=== PATIENT | male | born 1970 | race Caucasian/White ===

== ENCOUNTER → 2017-06-20 | Outpatient (CLI) | payer OTHER ==
[~2017-06-20] MED LIST: ACETAMINOPHEN PO; ADVIL200 M2 PO; ASPIRIN81 M2 PO; EXCEDRIN EXTRA1 TAB PO; IBUPROFEN; TOPROL XL 50 MG50 MG PO; TOPROL XL100 MG PO; TYLOX 5-500 CA1 EACH PO; ZANTAC PO; ZANTAC150 MG PO
--- NOTE | ~2017-06-20 | EKG ---
PATIENT: OBEY MURPHY UNIT #: [id number] Ventricular Rate: 70 BPM Atrial Rate: 70 BPM P-R Interval: 170 ms QRS Duration: 82 ms Q-T Interval: 392 ms QTC Calculation(Bezet): 423 ms P [place]: 42 degrees Calculated R [place]: 31 degrees Calculated T [place]: 23 degrees Diagnosis Line: Normal sinus rhythm Diagnosis Line: Possible Left atrial enlargement Diagnosis Line: Borderline ECG Diagnosis Line: No previous ECGs available Diagnosis Line: Confirmed by LINA WOOD MD ([id number]) on 06/22/2017 Diagnosis Line: 2:51:27 PM INTERPRETING MD: ISRAEL CORDERO
== END | disposition home or self-care (01) ==
LOC: CAMB 12:34
DX: Z01.810 Encounter for preprocedural cardiovascular examination (principal); K40.90 Unilateral inguinal hernia, without obstruction or gangrene, not specified as recurrent
CPT/HCPCS: 93005

== ENCOUNTER → 2017-06-27 | Day surgery (SDC) | payer OTHER ==
--- NOTE | ~2017-06-27 | OR ---
Unit #: [id number] #: [id number] Patient: OBEY MURPHY [id number] [address] [place], [place] [address] [id number] MR#: [id number] NAME: OBEY MURPHY ROOM: Date of Procedure: 06/27/2017 Admission Date: 06/27/2017 Surgeon: Ren Walters Jr., M.D. : 1970 Attending Physician: Ren Walters Jr., M.D. Primary Care Physician: Tray Bustos M.D. OPERATIVE REPORT INDICATIONS FOR PROCEDURE The patient is a 46-year-old white male, recently was referred to the office complaining of a bulge in the right inguinal area. He has had a previous hernia repair, but he is unsure of whether it was on the right or the left years ago. He is brought in this time with a reducible right inguinal hernia felt to be direct. He understands the procedure including the risk and consents. PREOPERATIVE DIAGNOSIS Right direct inguinal hernia. POSTOPERATIVE DIAGNOSES Right direct inguinal hernia, noting the entire floor of the inguinal canal being weak and attenuated. ANESTHESIA General with endotracheal intubation and 0.5% Marcaine with epinephrine locally. PROCEDURE PERFORMED Right inguinal hernia repair using plug and patch technique with two plugs, an extra large and a large being on the floor of the inguinal canal. DESCRIPTION OF PROCEDURE The patient was positioned in supine position and after being anesthetized and intubated, he was prepped and draped in routine fashion for right inguinal hernia repair. The right inguinal area was locally blocked with 0.5% Marcaine with epinephrine as a field block. A transverse incision was made over the right inguinal canal approximately 3 to 4 inch in length. This was carried down through subcutaneous tissue through Jerrica and Camper fascia and the external oblique fascia. The fibers of the external oblique were split from the external ring up past the internal ring and the ilioinguinal nerve retracted laterally to avoid any entrapment or damage. The cord structures were elevated from the pubic tubercle back to the internal ring. The base was checked. There was no evidence of any indirect sac. The entire floor of the inguinal canal was attenuated and weak forming a direct inguinal hernia. The fascia was then scored in the area of the hernia with the Bovie cautery and an extra large plug was placed at the pubic tubercle and sutured circumferentially to the fascia with interrupted 0 Ethibond sutures. An additional large plug was placed near the internal ring and sutured circumferentially with interrupted 0 Ethibond sutures. Both were tacked together with 0 Ethibond Unit #: [id number] #: [id number] Patient: OBEY MURPHY. The patch was placed over the floor of the inguinal canal and sutured circumferentially as routine from the pubic tubercle up around the cord structures with interrupted 0 Ethibond sutures. The wound was irrigated with saline solution and after hemostasis was noted, the ilioinguinal nerve and cord structures were placed back beneath the external oblique fascia which was then closed with a continuous 3-0 Vicryl suture. Jerrica and Camper fascia was approximated with interrupted 3-0 Vicryl sutures. Skin edges were approximated with stainless-steel skin clips and skin stapling device. Sterile dressings were applied externally. Estimated blood loss less than 50 mL. The patient received less than 1000 mL crystalloid solution during the procedure. Sponge and instrument counts were correct x3. No drains used. No complications. The patient was taken to the recovery room with stable vital signs in satisfactory condition. Dictated by... Ren Walters Jr., M.D. JMB/emil TD: 06/27/2017 14:13 JOB #: [id number] CC: Angel Bustos Jr., M.D. OPERATIVE REPORT Page 1 of 1 X Ren Walters MD X PROCEDURE OPERATIVE NOTE
== END | disposition home or self-care (01) ==
LOC: CSUR 05:36
DX: K40.90 Unilateral inguinal hernia, without obstruction or gangrene, not specified as recurrent (principal); I10 Essential (primary) hypertension; K21.9 Gastro-esophageal reflux disease without esophagitis; Z79.82 Long term (current) use of aspirin; Z79.899 Other long term (current) drug therapy
CPT/HCPCS: C1781; J0330; J0690; J1100; J1170; J1885; J2250; J2405; J2710; J3010